=== PATIENT | male | born 1955 | race African-American/Black ===

== ENCOUNTER 2021-09-21 20:11 | Inpatient (IN) | payer SELFPAY ==
[2021-09-21 20:35] VITALS: BMI 28.7
[2021-09-21] MEDS ORDERED: ASPIRIN 325 MG TABLET PO ONE (23:03)
[2021-09-21] MEDS ORDERED: FAMOTIDINE 20 MG/50 ML IVPB 20 MG/50 ML MG IVPB ONE (23:03)
[2021-09-21] MEDS ORDERED: MAG HYDROX/AL HYDROX/SIMETH 30 ML UNIT-DOSE CUP PO ONE (23:03)
[2021-09-21 23:56] LABS: HEMATOCRIT 38.3 % (35.4-49); HEMOGLOBIN 13.1 GM/dL (11.7-16.9); MCH 30.6 pg (25.7-33.7); MCHC 34.1 g/dl (32.0-35.9); MEAN CELL VOLUME 89.8 fl (80-96); MEAN PLT VOLUME 9.1 fl (7.5-11.1); PLATELET COUNT 226 10^3/uL (134-434); RBC 4.27 M/mm3 (4.00-5.60); RDW 13.6 % (11.9-15.9); WHITE BLOOD COUNT 6.6 K/mm3 (4.0-10.0)
[2021-09-22 00:16] LABS: CHLORIDE 107 mmol/L (98-107); SODIUM 140 mmol/L (136-145)
[2021-09-22 00:18] LABS: ALBUMIN 3.9 g/dl (3.4-5.0); ANION GAP 4 MMOL/L (8-16); CALCIUM 9.9 mg/dL (8.5-10.1); CO2 29 mmol/L (21-32); GLUCOSE,RANDOM 90 mg/dL (74-106)
[2021-09-22 00:19] LABS: BLOOD UREA NITROGEN 15.6 mg/dL (7-18)
[2021-09-22 00:21] LABS: CREATININE 1.1 mg/dL (0.55-1.3)
[2021-09-22 00:22] LABS: SGOT/AST 21 U/L (15-37); SGPT/ALT 19 U/L (13-61)
[2021-09-22 00:23] LABS: BILIRUBIN,TOTAL 0.5 mg/dL (0.2-1); TOT PROT 7.9 g/dl (6.4-8.2)
[2021-09-22 00:24] LABS: ALK PHOS 96 U/L (45-117)
[2021-09-22] MEDS ORDERED: ENOXAPARIN NA (PORCINE) 80 MG/0.8 ML DISP.SYRIN SQ ONE (01:01)
[2021-09-22] MEDS ORDERED: ENOXAPARIN NA (PORCINE) 100 MG/1 ML DISP.SYRIN SQ ONE (01:08)
[2021-09-22 02:48] LABS: ANISOCYTOSIS 0; MACROCYTOSIS 0
[2021-09-22] MEDS: ATORVASTATIN CA 80 MG TABLET (FP) PO SCH ×2 (04:20→23:16)
[2021-09-22 04:47] LABS: CHOLESTEROL 150 mg/dL (50-200); TRIGLYCERIDES 61 mg/dL (0-150)
[2021-09-22 04:50] LABS: HDL CHOLESTEROL 41 mg/dL (40-60); LDL CHOLESTEROL (ONLY SJRH) 102 mg/dL (5-100)
[2021-09-22] MEDS ORDERED: ATORVASTATIN CA 80 MG TABLET (FP) ONE ×2 (06:16→23:14)
[2021-09-22] MEDS ORDERED: METOPROLOL TARTRATE 25 MG TABLET (FP) ONE ×2 (09:01→11:21)
[2021-09-22] MEDS ORDERED: METOPROLOL TARTRATE 25 MG TABLET (FP) PO SCH (10:00)
[2021-09-22] MEDS ORDERED: METOPROLOL TARTRATE 50 MG TABLET (FP) PO SCH ×2 (10:00→22:00)
[2021-09-22] MEDS ORDERED: METOPROLOL TARTRATE 25 MG TABLET (FP) PO ONE (10:00)
[2021-09-22] MEDS ORDERED: HEPARIN NA (PORCINE) 5,000 UNITS/ML 1ML VIAL IVPUSH PRN ×2 (12:24)
[2021-09-22] MEDS ORDERED: HEPARIN INFUSION - 25,000 UNITS/500 ML INFUS.BAG IVPB SCH (12:30)
[2021-09-22] MEDS ORDERED: HEPARIN INFUSION - 25,000 UNITS/500 ML INFUS.BAG IVPB ONE (15:07)
[2021-09-22 15:41] VITALS: TEMP 98.6
[2021-09-22 17:53] VITALS: BP 164/107; PULSE 16
[2021-09-22 19:05] LABS: HEMATOCRIT 41.2 % (35.4-49); MCH 30.3 pg (25.7-33.7); MCHC 33.9 g/dl (32.0-35.9); MEAN CELL VOLUME 89.2 fl (80-96); MEAN PLT VOLUME 8.5 fl (7.5-11.1); PLATELET COUNT 307 10^3/uL (134-434); RBC 4.62 M/mm3 (4.00-5.60); RDW 13.4 % (11.9-15.9); WHITE BLOOD COUNT 5.7 K/mm3 (4.0-10.0)
[2021-09-22 19:33] LABS: CALCIUM 10.2 mg/dL (8.5-10.1)
[2021-09-22 19:34] LABS: ALBUMIN 4.2 g/dl (3.4-5.0); MAGNESIUM 2.4 mg/dL (1.8-2.4)
[2021-09-22 19:37] LABS: CREATININE 1.1 mg/dL (0.55-1.3); PHOSPHOROUS 2.7 mg/dL (2.5-4.9)
[2021-09-22 19:38] LABS: BILIRUBIN,TOTAL 0.9 mg/dL (0.2-1); TOT PROT 8.3 g/dl (6.4-8.2)
[2021-09-22] MEDS ORDERED: METOPROLOL TARTRATE 50 MG TABLET (FP) ONE (23:14)
== END 2021-09-23 02:10 | disposition short-term general hospital (02) | DRG 190 ==
LOC: JER 20:11 → JERBED 09-22 01:01
PROVIDERS: ADMIT Hospitalist; ATTEND Internal Medicine
DX: I21.4 Non-ST elevation (NSTEMI) myocardial infarction (principal); R07.9 Chest pain, unspecified; I16.1 Hypertensive emergency; I25.10 Atherosclerotic heart disease of native coronary artery without angina pectoris
CPT/HCPCS: 0241U-QW; 36415; 71045-TC-FY; 80053; 80061; 83036; 83735; 84100; 84484; 85025; 85027; 85730; 93005; 93010; 99285-25; J1644